=== PATIENT | male | born 1960 | race Caucasian/White ===

== ENCOUNTER 2019-08-13 00:07 | Emergency (ER) | payer MEDICAID, OTHER ==
[~2019-08-13] VITALS: Ht 182.9 cm; Wt 86.0 kg
[~2019-08-13 00:07] MED LIST: TAMS0.4C32 PO
[2019-08-13 00:39] LABS: BASOPHILS # (AUTO) 0.1 X10'3 (0-0.2); BASOPHILS % (AUTO) 1.1 % (0-1); EOSINOPHILS # (AUTO) 0.5 X10'3 (0-0.9); EOSINOPHILS % (AUTO) 4.4 % (0-6); HEMATOCRIT 41.4 % (42.0-52.0); HEMOGLOBIN 13.8 g/dl (14.0-17.9); LYMPHOCYTES % (AUTO) 27.4 % (21-51); MEAN CORPUSCULAR HEMOGLOBIN 31.2 PG (27.0-31.0); MEAN CORPUSCULAR HGB CONC 33.2 g/dL (33.0-36.5); MEAN CORPUSCULAR VOLUME 93.8 FL (78-98); MEAN PLATELET VOLUME 8.4 FL (7.4-10.4); MONOCYTES # (AUTO) 0.7 X10'3 (0-0.9); MONOCYTES % (AUTO) 6.2 % (2-12); NEUTROPHILS # (AUTO) 6.7 X10'3 (1.8-7.7); NEUTROPHILS % (AUTO) 60.9 % (42-75); PLATELET COUNT 244 X10'3 (140-440); RED BLOOD COUNT 4.42 X10'6 (4.70-6.10); RED CELL DISTRIBUTION WIDTH 13.5 % (11.5-14.5)
[2019-08-13 00:55] LABS: ALANINE AMINOTRANSFERASE 45 U/L (12-78); ALBUMIN 3.5 G/DL (3.4-5.0); ALBUMIN/GLOBULIN RATIO 0.9 (1.1-1.5); ALKALINE PHOSPHATASE 76 IU/L (46-116); ANION GAP 5 (8-16); ASPARTATE AMINO TRANSFERASE 27 U/L (10-37); BILIRUBIN,TOTAL 0.2 MG/DL (0.1-1.0); BLOOD UREA NITROGEN 23 MG/DL (7-18); BUN/CREATININE RATIO 16.5 (5.4-32.0); CALCIUM 9.5 MG/DL (8.5-10.1); CHLORIDE 106 MMOL/L (99-107); CREATININE 1.39 MG/DL (0.60-1.10); GLUCOSE 115 MG/DL (70-104); POTASSIUM 4.2 MMOL/L (3.5-5.1); SODIUM 142 MMOL/L (135-145); TOTAL CARBON DIOXIDE 31.1 MMOL/L (24-32); TOTAL PROTEIN 7.2 G/DL (6.4-8.2); eGFR 52 ML/MIN
[2019-08-13] MEDS ORDERED: heparin 10,000 units/1 ML INJ IV PRN (01:35)
[2019-08-13] MEDS ORDERED: heparin 10,000 units/1 ML INJ IV ONE ×2 (01:35→01:45)
[2019-08-13] MEDS ORDERED: aspirin 325mg tablet PO ONE (01:35)
[2019-08-13] MEDS ORDERED: heparin 25,000 UNIT/250ml bag 250 ML IV SCH (01:35)
[2019-08-13] MEDS ORDERED: iohexol 350MG/ML 100ml bottle IV ONE (01:44)
[2019-08-13] MEDS ORDERED: furosemide 10 MG/1 ML 10ml inj IV ONE (01:45)
[2019-08-13 02:03] VITALS: BP 191/101
[2019-08-13 02:07] LABS: PARTIAL THROMBOPLASTIN TIME 26 SECONDS (22-32)
--- NOTE | 2019-08-13 02:19 | NUR ---
PT REFUSED MEDICATIONS AND TREATMENT HE STATED HE HAS TO GET HOME TO HIS DOGS, HE SAID HE WILL BE BACK. HE UNDERSTANDS THAT HIS TROPONIN IS ELEVATED AND THAT HE NEEDS TO BE ADMITTED HE WAS ADVICED LEAVING COULD BE FATAL. HE STILL CHOSE TO LEAVE.
== END 2019-08-13 02:23 | disposition left against medical advice (07) ==
LOC: ER 00:08
DX: I50.9 Heart failure, unspecified (principal); R79.0 Abnormal level of blood mineral; F17.200 Nicotine dependence, unspecified, uncomplicated; Z87.442 Personal history of urinary calculi; Z72.89 Other problems related to lifestyle; Z79.899 Other long term (current) drug therapy
CPT/HCPCS: 36415; 71045; 80053; 83880; 84484; 85025; 85610; 85730; 93005; 99285; Q9967

== ENCOUNTER 2019-08-13 13:00 | Emergency (ER) | payer OTHER ==
[~2019-08-13] VITALS: Ht 180.3 cm; Wt 86.0 kg
[2019-08-13 13:03] VITALS: BP 180/86
== END 2019-08-13 15:53 | disposition left against medical advice (07) ==
LOC: ER 13:00
DX: R06.02 Shortness of breath (principal); Z53.21 Procedure and treatment not carried out due to patient leaving prior to being seen by health care provider
CPT/HCPCS: 93005

== ENCOUNTER 2019-09-06 23:11 | Emergency (ER) | payer OTHER ==
[~2019-09-06] VITALS: Ht 180.3 cm; Wt 100.0 kg
[2019-09-06 23:45] LABS: BASOPHILS # (AUTO) 0.2 X10'3 (0-0.2); BASOPHILS % (AUTO) 1.5 % (0-1); EOSINOPHILS # (AUTO) 0.5 X10'3 (0-0.9); EOSINOPHILS % (AUTO) 3.7 % (0-6); HEMATOCRIT 43.7 % (42.0-52.0); HEMOGLOBIN 14.6 g/dl (14.0-17.9); LYMPHOCYTES # (AUTO) 3.3 X10'3 (1.1-4.8); LYMPHOCYTES % (AUTO) 27.4 % (21-51); MEAN CORPUSCULAR HEMOGLOBIN 30.9 PG (27.0-31.0); MEAN CORPUSCULAR HGB CONC 33.3 g/dL (33.0-36.5); MEAN CORPUSCULAR VOLUME 92.7 FL (78-98); MEAN PLATELET VOLUME 8.2 FL (7.4-10.4); MONOCYTES # (AUTO) 0.7 X10'3 (0-0.9); MONOCYTES % (AUTO) 6.1 % (2-12); NEUTROPHILS # (AUTO) 7.5 X10'3 (1.8-7.7); NEUTROPHILS % (AUTO) 61.3 % (42-75); PLATELET COUNT 302 X10'3 (140-440); RED BLOOD COUNT 4.72 X10'6 (4.70-6.10); RED CELL DISTRIBUTION WIDTH 13.3 % (11.5-14.5); WHITE BLOOD COUNT 12.2 X10'3 (4.5-11.0)
[2019-09-06] MEDS ORDERED: NO HOME MEDS (23:54)
[2019-09-06 23:55] LABS: ALANINE AMINOTRANSFERASE 49 U/L (12-78); ALBUMIN 3.7 G/DL (3.4-5.0); ALBUMIN/GLOBULIN RATIO 0.9 (1.1-1.5); ALKALINE PHOSPHATASE 86 IU/L (46-116); ANION GAP 8 (8-16); ASPARTATE AMINO TRANSFERASE 20 U/L (10-37); BILIRUBIN,TOTAL 0.2 MG/DL (0.1-1.0); BLOOD UREA NITROGEN 21 MG/DL (7-18); BUN/CREATININE RATIO 16.5 (5.4-32.0); CALCIUM 8.9 MG/DL (8.5-10.1); CHLORIDE 104 MMOL/L (99-107); CREATININE 1.27 MG/DL (0.60-1.10); GLUCOSE 113 MG/DL (70-104); POTASSIUM 3.8 MMOL/L (3.5-5.1); SODIUM 141 MMOL/L (135-145); TOTAL CARBON DIOXIDE 29.3 MMOL/L (24-32); eGFR 58 ML/MIN
[2019-09-07] MEDS ORDERED: ipratropium/albuterol 3ml nebule NEB ONE (00:40)
[2019-09-07 01:07] LABS: D-DIMER 0.56 MG/L FEU (0-0.50)
[2019-09-07] MEDS ORDERED: FURO-150 PO (01:23)
[2019-09-07] MEDS ORDERED: POTA20TA19 PO (01:23)
[2019-09-07] MEDS ORDERED: LISI-600 PO (01:23)
[2019-09-07 01:27] VITALS: BP 155/83
[2019-09-07] MEDS ORDERED: lisinopril 10 MG tablet PO ONE (01:30)
[2019-09-07] MEDS ORDERED: furosemide 20MG tablet PO ONE (01:30)
== END 2019-09-07 01:31 | disposition home or self-care (01) ==
LOC: ER 23:11
DX: I10 Essential (primary) hypertension (principal); R06.00 Dyspnea, unspecified; Z87.442 Personal history of urinary calculi; Z72.89 Other problems related to lifestyle; Z79.899 Other long term (current) drug therapy
CPT/HCPCS: 36415; 71045; 80053; 83735; 83880; 84484; 85025; 85379; 93005; 94640; 94760; 99285